=== PATIENT | female | born 1980 | race Caucasian/White ===

== ENCOUNTER 2017-07-13 06:20 | Emergency (ER) | payer SELFPAY ==
[~2017-07-13] VITALS: Wt 60.5 kg
[2017-07-13] MEDS ORDERED: SOD CHLORIDE 0.9% 1,000 ML IV STA (06:34)
[2017-07-13] MEDS ORDERED: ONDANSETRON 4 MG INJ IV STA ×3 (06:34→16:44)
[2017-07-13] MEDS ORDERED: morphine 4 MG/ML VIAL IV STA (06:34)
--- NOTE | 2017-07-13 06:42 | ERD ---
ER Documentation Chief Complaint Date/Time DATE: 07/13/17 TIME: 06:36 Chief Complaint RLQ pain w nausea HPI This is a 36-year-old female presenting to emergency department with right lower quadrant abdominal pain starting 2 hours prior to arrival. Patient states she woke up with sudden onset right lower quadrant abdominal pain and severe nausea. Patient states pain radiates from right abdominal lower quadrant to right lower back. Denies vomiting or diarrhea. Patient states pain is 10/10 and describes pain as pulsating. No dysuria, hematuria, urinary frequency or urinary urgency. Patient did not take any medications for this. ROS All systems reviewed and are negative except as per history of present illness. Medications Home Meds Active Scripts Ibuprofen* (Motrin*) 600 Mg Tab, 600 MG PO Q6, #15 TAB Prov:LISBETH BARNES NP 07/13/17 Hydrocodone/Acetaminophen ([place] 5-325 Tablet) 1 Each Tablet, 1 TAB PO Q6H Y for PAIN, #15 TAB Prov:LISBETH BARNES NP 07/13/17 Allergies Allergies: Coded Allergies: No Known Allergy (Unverified , 07/13/17) PMhx/Soc History of Surgery: Yes (Hand surgery, left lower abdomen surgery) Physical Exam Vitals Vital Signs Date Time Temp Pulse Resp B/P Pulse Ox O2 Delivery O2 Flow Rate FiO2 07/13/17 15:47 98.5 78 18 116/79 98 Room Air 07/13/17 12:17 98.4 65 16 114/69 100 Room Air 07/13/17 06:26 97.7 80 20 120/78 99 Physical Exam Const: Alert, writhing in pain Head: Atraumatic Eyes: Normal Conjunctiva ENT: Normal External Ears, Nose and Mouth. Neck: Full range of motion..~ No meningismus. Resp: Clear to auscultation bilaterally. No wheezing, rhonchi or crackles. No stridor or labored breathing Cardio: Regular rate and rhythm, no murmurs Abd: Soft, non distended. Normal bowel sounds, positive rebound tenderness, positive McBurney point tenderness Skin: No petechiae or rashes Back: No midline or flank tenderness Ext: No cyanosis, or edema Neur: Awake and alert Psych: Normal Mood and Affect Result Diagram: 07/13/17 0715 07/13/17 0715 Results 24 hrs Laboratory Tests Test 07/13/17 07:15 White Blood Count 7.310^3/ul Red Blood Count 4.0110^6/ul Hemoglobin 11.9g/dl Hematocrit 36.8% Mean Corpuscular Volume 91.8fl Mean Corpuscular Hemoglobin 29.7pg Mean Corpuscular Hemoglobin Concent 32.3g/dl Red Cell Distribution Width 14.0% Platelet Count 67105^3/UL Mean Platelet Volume 10.4fl Neutrophils % 67.0% Lymphocytes % 23.4% Monocytes % 5.3% Eosinophils % 3.3% Basophils % 0.7% Nucleated Red Blood Cells % 0.0/100WBC Neutrophils # (Manual) 510^3/ul Lymphocytes # 1.710^3/ul Monocytes # 0.410^3/ul Eosinophils # 0.210^3/ul Basophils # 0.110^3/ul Nucleated Red Blood Cells # 0.010^3/ul Sodium Level 145mmol/L Potassium Level 4.3mmol/L Chloride Level 101mmol/L Carbon Dioxide Level 31mmol/L Anion Gap 17 Blood Urea Nitrogen 10mg/dl Creatinine 0.71mg/dl Glucose Level 83mg/dl Calcium Level 9.3mg/dl Total Bilirubin 0.2mg/dl Direct Bilirubin 0.00mg/dl Indirect Bilirubin 0.2mg/dl Aspartate Amino Transf (AST/SGOT) 25IU/L Alanine Aminotransferase (ALT/SGPT) 33IU/L Alkaline Phosphatase 46IU/L Total Protein 6.8g/dl Albumin 3.6g/dl Globulin 3.20g/dl Albumin/Globulin Ratio 1.12 Lipase 161U/L Current Medications Medications (Trade) Dose Ordered Sig/Bebeto Route PRN Reason Start Time Stop Time Status Last Admin Dose Admin Sodium Chloride (NS) 1,000 ml @ 1,000 mls/hr Q1H STAT IV 07/13/17 06:34 07/13/17 07:33 DC 07/13/17 07:25 Morphine Sulfate (morphine) 4 mg ONCE STAT IV 07/13/17 06:34 07/13/17 06:36 DC 07/13/17 07:25 Ondansetron HCl (Zofran Inj) 4 mg ONCE STAT IV 07/13/17 06:34 07/13/17 06:36 DC 07/13/17 07:25 Hydromorphone HCl (Dilaudid) 1 mg ONCE STAT IV 07/13/17 08:12 07/13/17 08:14 DC 07/13/17 08:17 Hydromorphone HCl (Dilaudid) 1 mg ONCE STAT IV 07/13/17 12:08 07/13/17 12:17 DC 07/13/17 12:16 Ondansetron HCl (Zofran Inj) 4 mg ONCE STAT IV 07/13/17 13:20 07/13/17 13:21 DC 07/13/17 13:24 Procedures/[place] [id number] Radiology Main Line: [phone] DIAGNOSTIC IMAGING REPORT Patient: DENNY FARFAN : 1980 Age: 36 Sex: F MR #: [id number] DOS: 07/13/17 0634 Ordering MD: LISBETH BARNES NP Location: [facility] Room/Bed: PROCEDURE: CT Abdomen and pelvis without contrast. CLINICAL INDICATION: Right lower quadrant abdominal pain. TECHNIQUE: CT scan of the abdomen and pelvis without contrast was performed on a multidetector high-resolution CT scan. . Coronal and sagittal reformatted images were obtained from the axial source images. Standard CT scan of the abdomen pelvis without contrast protocols were performed. The total exam CTDI equals 9.78 mGy and the total exam DLP equals 551.7 mGy-cm. One or more of the following dose reduction techniques were used: - Automated exposure control. - Adjustment of the mA and/or kV according to patient size. Use of iterative reconstruction technique. COMPARISON: None. FINDINGS: The appendix is unremarkable. The stomach, small bowel and large bowel are unremarkable. There are multiple cholesterol gallstones. No definite gallbladder wall thickening or pericholecystic fluid. No evidence biliary ductal dilation. The liver spleen pancreas adrenal glands are unremarkable. Kidneys are normal in size without calcified renal calculi hydronephrosis or intra renal masses bilaterally. The urinary bladder is unremarkable. There is a large mass seen along the anterior lateral superior uterus measuring 8 x 7 cm and it is uncertain if it is a pedunculated mass originating from the uterus such as a pedunculated leiomyoma or a left adnexal mass. There are small calcifications along the posterior aspect of this finding. Other possibility would be a left ovarian mass such as a dermoid. Additionally there is pedunculated mass involving the anterior superior right uterus likely a pedunculated leiomyoma. A right adnexal mass is felt to be less likely but cannot be excluded. Recommend pelvic ultrasound for further evaluation. Small amount of free fluid in the cul-de-sac. No other abdominal free fluid. No intra-abdominal abscess or free air. The aorta is unremarkable. The lung bases are unremarkable. The abdominal pelvic horowitz are unremarkable. The osseous structures are unremarkable. IMPRESSION: 1. Unremarkable appendix. No gastrointestinal disease demonstrated. 2. Multiple cholesterol gallstones without gallbladder wall thickening or pericholecystic fluid. Negative biliary ductal dilation. 3. Masses along the right and left superior uterus as described above may represent pedunculated leiomyomas adnexal masses including a left ovarian dermoid should be considered. A pelvic ultrasound is suggested for further evaluation. 4. Small amount of free fluid in the cul-de-sac. No other abdominal free fluid , free air, abscesses or lymphadenopathy. [place] [address] Radiology Main Line: [phone] DIAGNOSTIC IMAGING REPORT Patient: DENNY FARFAN : 1980 Age: 36 Sex: F [id number] DOS: 07/13/17 0833 Ordering MD: LISBETH BARNES NP Location: [facility] Room/Bed: PROCEDURE: US Pelvis CLINICAL INDICATION: Pelvic pain. TECHNIQUE: Sonographic evaluation of the pelvis was performed utilizing both transabdominal and transvaginal technique. Curved array transabdominal transducer technique as well as a high frequency endovaginal probe was utilized. Images were reviewed on the high-resolution PACS workstation. COMPARISON: No prior studies are available for comparison. FINDINGS: The uterus is normal in size, echogenicity, and morphology measuring 6.6 x 3.1 x 6.8 cm in dimension. The uterus is anteverted in normal position. The endometrium is normal for menstrual age female measuring 6.3 mm in diameter. The normal trilaminar stripe of the endometrium is preserved. There is a 5.0 x 4.0 x 5.0 cm left lateral subserosal fibroid. The right ovary measures 3.7 x 2.7 x 3.0 cm in dimension. There is a 2.0 cm right ovarian hemorrhagic cyst. Normal Doppler flow is demonstrated to the right ovary. The left ovary is not visualized. There is a complex septated structure with homogeneous low level internal echoes within the left adnexa measuring 6.7 x 4.9 x 6.6 cm.. Normal Doppler flow is demonstrated to both ovaries. There are no adnexal masses. There is small free fluid in the pelvis. IMPRESSION: 1. 5.0 x 4.0 x 5.0 cm left lateral subserosal fibroid. 2. The left ovary is not visualized. There is a complex septated structure within the left adnexa measuring 6.7 x 4.9 x 6.6 cm which may reflect an additional subserosal fibroid or ovarian lesion. Further evaluation with pelvic MRI is recommended. 3. 2 cm right ovarian hemorrhagic cyst. 4. Small free fluid in the pelvis. MDM: This is a 36-year-old female presenting to the emergency department for sudden onset right lower quadrant abdominal pain with nausea starting 2 hours prior to arrival. No fever upon arrival to ED. Vital signs are stable. No signs or symptoms of respiratory distress. Labs and IV start ordered. IV access obtained per operations staff specialist security and patient given morphine 4 mg IV and Zofran 4 mg IV. CBC shows no significant anemia or infection. CMP shows no significant electrolyte imbalance. Liver enzymes are normal. Bilirubin is normal. Glucose is normal. Lipase is 161. CT abdomen and pelvis reviewed by radiologist as unremarkable appendix. No gastrointestinal disease demonstrated. Multiple cholesterol gallstones within gallbladder without gallbladder wall thickening or pericholecystic fluid. Negative biliary ductal dilation. Masses along the right and left superior uterus as described above which may represent pedunculated leiomyomas adnexal masses including a left ovarian dermoid should be considered. A pelvic ultrasound is suggested for further evaluation. Pelvic US reviewed by radiologist as 5.0x 4.0 x 5.0 cm left lateral subserosal fibroid. The left ovary is not visualized. There is a complex septated structure within the left adnexa measuring 6.7 x 4.9 x 6.6 cm which may reflect an additional subserosal fibroid or ovarian lesion. Further evaluation with pelvic MRI is recommended. 2 cm right ovarian hemorrhagic cyst. Small free fluid in the pelvis. Pelvic MRI ordered. Patient signed out to Suni Valdez pending MRI results. Departure Diagnosis: Primary Impression: Abdominal pain Condition: Stable LISBETH BARNES NP Jul 13, 2017 06:41
[2017-07-13 07:38] LABS: BASOPHIL # 0.1 10^3/ul (0.0-0.1); BASOPHILS % 0.7 % (0.0-2.0); EOSINOPHILS # 0.2 10^3/ul (0.0-0.5); EOSINOPHILS % 3.3 % (0.0-7.0); HEMATOCRIT 36.8 % (37.0-47.0); HEMOGLOBIN 11.9 g/dl (12.0-16.0); LYMPHOCYTES # 1.7 10^3/ul (0.8-2.9); LYMPHOCYTES % 23.4 % (15.0-51.0); MEAN CORPUSCULAR HEMOGLOBIN 29.7 pg (29.0-33.0); MEAN CORPUSCULAR HGB CONC 32.3 g/dl (32.0-37.0); MEAN CORPUSCULAR VOLUME 91.8 fl (82.0-101.0); MEAN PLATELET VOLUME 10.4 fl (7.4-10.4); MONOCYTE # 0.4 10^3/ul (0.3-0.9); MONOCYTES % 5.3 % (0.0-11.0); PLATELET COUNT 275 10^3/UL (140-415); RED BLOOD COUNT 4.01 10^6/ul (4.20-5.40); WHITE BLOOD COUNT 7.3 10^3/ul (4.8-10.8)
[2017-07-13 07:59] LABS: ALBUMIN 3.6 g/dl (3.3-4.9); ALBUMIN/GLOBULIN RATIO 1.12; BILIRUBIN,INDIRECT 0.2 mg/dl (0-1.1); BILIRUBIN,TOTAL 0.2 mg/dl (0.2-1.3); CALCIUM 9.3 mg/dl (8.4-10.2); CREATININE 0.71 mg/dl (0.44-1.00); POTASSIUM 4.3 mmol/L (3.5-5.1); TOTAL PROTEIN 6.8 g/dl (6.1-8.1)
[2017-07-13] MEDS ORDERED: HYDROmorphONE 1 MG/ML SYG IV STA ×3 (08:12→16:44)
--- NOTE | 2017-07-13 08:26 | RADRPT ---
PROCEDURE: CT Abdomen and pelvis without contrast. CLINICAL INDICATION: Right lower quadrant abdominal pain. TECHNIQUE: CT scan of the abdomen and pelvis without contrast was performed on a multidetector hig h-resolution CT scan. . Coronal and sagittal reformatted images were obtained from the axial [facility] e images. Standard CT scan of the abdomen pelvis without contrast protocols were performed. The total exam CTDI equals 9.78 mGy and the total exam DLP equals 551.7 mGy-cm. One or more of the following dose reduction techniques were used: - Automated exposure control. - Adjustment of the mA and/or kV according to patient size. Use of iterative reconstruction technique. COMPARISON: None. FINDINGS: The appendix is unremarkable. The stomach, small bowel and large bowel are unremarkable. There are multiple cholesterol gallstones. No definite gallbladder wall thickening or pericholecyst ic fluid. No evidence biliary ductal dilation. The liver spleen pancreas adrenal glands are unremarkable. Kidneys are normal in size without calcified renal calculi hydronephrosis or intra renal masses bila terally. The urinary bladder is unremarkable. There is a large mass seen along the anterior lateral superior uterus measuring 8 x 7 cm and it is u ncertain if it is a pedunculated mass originating from the uterus such as a pedunculated leiomyoma o r a left adnexal mass. There are small calcifications along the posterior aspect of this finding. Other possibility would be a left ovarian mass such as a dermoid. Additionally there is pedunculate d mass involving the anterior superior right uterus likely a pedunculated leiomyoma. A right adnexa l mass is felt to be less likely but cannot be excluded. Recommend pelvic ultrasound for further ev aluation. Small amount of free fluid in the cul-de-sac. No other abdominal free fluid. No intra-abdominal ab scess or free air. The aorta is unremarkable. The lung bases are unremarkable. The abdominal pelvic horowitz are unremar kable. The osseous structures are unremarkable. IMPRESSION: 1. Unremarkable appendix. No gastrointestinal disease demonstrated. 2. Multiple cholesterol gallstones without gallbladder wall thickening or pericholecystic fluid. N egative biliary ductal dilation. 3. Masses along the right and left superior uterus as described above may represent pedunculated le iomyomas adnexal masses including a left ovarian dermoid should be considered. A pelvic ultrasound is suggested for further evaluation. 4. Small amount of free fluid in the cul-de-sac. No other abdominal free fluid, free air, abscesse s or lymphadenopathy. RPTAT:AAJJ Danay Ahn Physician Date Time Electronically viewed and signed by Danay Ahn Physician on 07/13/2017 08:26 BM/
--- NOTE | 2017-07-13 10:35 | RADRPT ---
PROCEDURE: US Pelvis CLINICAL INDICATION: Pelvic pain. TECHNIQUE: Sonographic evaluation of the pelvis was performed utilizing both transabdominal and tr ansvaginal technique. Curved array transabdominal transducer technique as well as a high frequency endovaginal probe was utilized. Images were reviewed on the high-resolution PACS workstation. COMPARISON: No prior studies are available for comparison. FINDINGS: The uterus is normal in size, echogenicity, and morphology measuring 6.6 x 3.1 x 6.8 cm in dimension . The uterus is anteverted in normal position. The endometrium is normal for menstrual age female measuring 6.3 mm in diameter. The normal trilaminar stripe of the endometrium is preserved. There is a 5.0 x 4.0 x 5.0 cm left lateral subserosal fibroid. The right ovary measures 3.7 x 2.7 x 3.0 cm in dimension. There is a 2.0 cm right ovarian hemorrhagi c cyst. Normal Doppler flow is demonstrated to the right ovary. The left ovary is not visualized. T here is a complex septated structure with homogeneous low level internal echoes within the left adne xa measuring 6.7 x 4.9 x 6.6 cm.. Normal Doppler flow is demonstrated to both ovaries. There are n o adnexal masses. There is small free fluid in the pelvis. IMPRESSION: 1. 5.0 x 4.0 x 5.0 cm left lateral subserosal fibroid. 2. The left ovary is not visualized. There is a complex septated structure within the left adnexa measuring 6.7 x 4.9 x 6.6 cm which may reflect an additional subserosal fibroid or ovarian lesion. Further evaluation with pelvic MRI is recommended. 3. 2 cm right ovarian hemorrhagic cyst. 4. Small free fluid in the pelvis. RPTAT: HH .Misty Darby MD, Date Time Electronically viewed and signed by .Misty Darby MD, MD on 07/13/2017 10:34 .G/
[2017-07-13] MEDS ORDERED: HYDR-906 PO (15:51)
[2017-07-13] MEDS ORDERED: IBUP-1542 PO (15:51)
--- NOTE | 2017-07-13 17:13 | RADRPT ---
PROCEDURE: MRI pelvis without contrast CLINICAL INDICATION: 1 day history of pelvic pain. History of cyst removal many years ago. Abnor mality seen on pelvic ultrasound and CT. TECHNIQUE: MRI of the pelvis was performed and is in sagittal T2, coronal T2, axial and T2 with an d without fat suppression, axial T1 GRE in and out of phase and with fat suppression and axial DWI. COMPARISON: CT abdomen pelvis and pelvic ultrasound from the same day FINDINGS: Uterus: The uterus is anteverted. There is a 4.1 x 4.2 cm exophytic subserosal fibroid arising from the rig ht uterine body that has a broad base of attachment to the underlying myometrium. Fibroid is mildly hyperintense on T2 in keeping with a hypercellular fibroid. There are 2 small exophytic fibroids a rising from the uterine fundus at the right and left cornu that may be pedunculated. They measure 1 cm on the left (5/10) and 1.1 cm on the right (5/17). There is a 0.5 cm intramural fibroid in the posterior uterine body. Myometrium and cervix otherwise appear normal. Negative for abnormal thick ening of the junctional zone. Endometrium: 0.6 cm and normal. Right adnexa: Right ovary is normal and measures 2.5 x 2.8 x 2.9 cm. It contains several follicles. Negative for right adnexal mass. Left adnexa: There is a 4.9 x 5.4 x 6.9 cm complex cystic mass in the left adnexa that arises from the left ovary. Mass is predominantly bilobed with an internal septation. There is a third compone nt posteriorly measuring 1.5 cm and it is unclear if this is cystic or solid. The majority of the c yst contents are hyperintense on T1 and T2 in keeping with proteinaceous or hemorrhagic contents. Ne gative for internal shading on T2. There are 4 nodular low T2 signal intensity foci at the posterio r aspect that are less conspicuous on the T1 gradient-echo sequences and therefore unlikely to be co mposed of calcium or hemosiderin. Bladder: Partially filled. Pelvic fluid: Trace free pelvic fluid. Vasculature: Unremarkable for noncontrast scan. Lymph nodes: Normal. Bowel: Normal. Musculoskeletal: Bone marrow signal intensity is normal. There may be a small right hip joint effus ion. IMPRESSION: 6.9 cm complex cystic mass in the left adnexa likely arises from the left ovary and is incompletely evaluated without intravenous contrast. It is concerning for an ovarian cystic neoplasm and surgic al consultation is advised. Enlarged uterus due to fibroids including a dominant exophytic subserosal fibroid arising from the r ight uterine body. Small volume free pelvic fluid. RPTAT: HCTS Physician Jacqueline Date Time Electronically viewed and signed by Fermin Persaud Physician on 07/13/2017 17:42 CS/
[2017-07-13 17:14] VITALS: BP 104/60; PULSE 64; RESP 18; TEMP 98.2
[2017-07-13] MEDS ORDERED: ONDA4TAB14 PO (17:31)
== END 2017-07-13 17:38 | disposition home or self-care (01) ==
LOC: FTE 06:20
DX: R10.31 Right lower quadrant pain (principal); R10.2 Pelvic and perineal pain; R11.0 Nausea
CPT/HCPCS: 36415; 72195; 74176; 76830; 76856; 80053; 83690; 85025; 96374; 96375; 96376; 99285; J1170; J2270; J2405; J7030